=== PATIENT | female | born 1950 | race Caucasian/White ===

== ENCOUNTER → 2016-07-15 | Outpatient (CLI) | payer MEDICARE ==
[2016-07-15 12:19] LABS: Basophils # (A) 0.1 k/uL (0-0.2); Basophils % (A) 1 %; CH 32.1; CHCM 36.3; Eosinophils # (A) 0.4 k/uL (0-0.7); Eosinophils % (A) 4 %; HDW 3.35; HGB 15.4 gm/dL (11.4-16.0); Luc # (Auto) 0.22; Luc % (Auto) 2; Lymphocytes # (A) 2.7 k/uL (1.0-4.8); Lymphocytes % (A) 26 %; MCH 31.1 pg (25.0-35.0); MCHC 34.9 g/dL (31.0-37.0); MCV 89.1 fL (80.0-100.0); Mean Platelet Volume 8.4; Monocytes # (A) 0.7 k/uL (0-1.0); Monocytes % (A) 6 %; Neutrophils # (A) 6.3 k/uL (1.3-7.7); Neutrophils % (A) 61 %; RBC 4.94 m/uL (3.80-5.40); RDW 13.6 % (11.5-15.5); WBC 10.3 k/uL (3.8-10.6); WBC (Perox) 10.47
== END | disposition home or self-care (01) ==
LOC: LABPAT 11:37
PROVIDERS: ATTEND Obstetrics & Gynecology
DX: Z01.810 Encounter for preprocedural cardiovascular examination (principal); N84.0 Polyp of corpus uteri; I10 Essential (primary) hypertension
CPT/HCPCS: 85025; 93005

== ENCOUNTER 2016-07-24 08:56 | Day surgery (SDC) | payer MEDICARE ==
[2016-07-20 08:48] VITALS: BMI 42.1
--- NOTE | 2016-07-20 12:09 | HP ---
DATE OF ADMISSION: 07/24/2016 This is a 66-year-old white female, 5, para 4-0-1-4 who presented initially with an episode of postmenopausal bleeding. She had 8 days of bright red vaginal bleeding, which she discussed with Dr. Ji and was sent for evaluation. In addition, endometrial biopsy was performed, revealing fragments of benign polyps and disordered proliferative endometrium. Ultrasound showed increased endometrial thickness of 9 mm. Review of systems is otherwise negative. PAST MEDICAL HISTORY: Significant for fibrocystic breast changes, goiter, unspecified hepatitis, hypertension and anemia. PAST SURGICAL HISTORY: Significant for D&C for miscarriage as well as tubal ligation. CURRENT MEDICATIONS: 1. Lisinopril daily. 2. Motrin [id number]-[id number]-[id number], as needed. 3. Multivitamin daily. 4. Vitamin B12, folic acid supplement daily. Allergies include PENICILLIN to which she reports itching and redness. FAMILY HISTORY: Significant for breast cancer, COPD, diabetes, heart disease, hypertension and lung cancer in her father. Reproductive history is significant for 4 vaginal deliveries, spontaneous miscarriage requiring D&C. SOCIAL HISTORY: The patient is , her 's name is Dani. She is a former tobacco smoker. She admits to social alcohol use, no recreational drug use. Review of systems is otherwise negative. On exam, this is a pleasant white female, she is 5 feet 3 inches, 237 pounds, blood pressure 140/80. BMI 42. General physical exam reveals no obvious changes. Neck is soft and supple, good range of motion, no thyromegaly, no cervical lymphadenopathy. Chest is clear to auscultation in all thibodeaux anteriorly and posteriorly. Cardiac exam reveals regular rate and rhythm with no murmur, click or rub. Breasts are symmetric to inspection, no discernible lesions or masses, no nipple discharge, no axillary adenopathy, no skin changes. Abdominal exam reveals a mildly obese abdomen, no organosplenomegaly, active bowel sounds, no CVA tenderness. External genitalia is well estrogenized. There is a grade 3 cystocele noted and a grade 3 rectocele. Cervix is multiparous in appearance. Endometrial biopsy is performed and discussed above. Adnexa are negative, smooth, mobile and nontender. Rectal exam reveals good sphincter tone, FIT negative stool. IMPRESSION: Postmenopausal bleeding, endometrial biopsy revealing fragments of benign polyps and disordered proliferative endometrium. Patient does have cystocele and rectocele but is requesting NovaSure endometrial ablation. PLAN: We will proceed with hysteroscopy, NovaSure ablation at [facility]. The pamphlets on this procedure have been given to the patient and they have been reviewed. She understands the risks of infection, bleeding, perforation to bowel, bladder, ureters, or indeed any pelvic or abdominal organs. We discussed also the risk of the anesthesia, aspiration, nerve damage or even . All questions are answered.
[~2016-07-24 08:56] MED LIST: DEXAMETHASONE SOD PHOSPHATE 10 MG/ML 1 ML VIAL IV ONE; HYDROmorphone 1 MG/ML 1 ML SYRINGE IVP PRN; LACTATED RINGERS 1,000 ML IV SCH; MIDAZOLAM 2 MG/2 ML VIAL IV PRN; ONDANSETRON 4 MG/2 ML VIAL IVP ONE; SCOPOLAMINE 1.5MG/72HR PATCH TRANSDERM ONE; ceFAZolin 2 GM in SODIUM CHLORIDE 0.9% 100 ML IVPB ONE
[2016-07-24] MEDS ORDERED: LIDOCAINE 1% 20 ML VIAL (10MG/ML) FOR IV START INTRADERMA ONE (10:02)
[2016-07-24] MEDS ORDERED: PROPOFOL 10 MG/ML 20 ML VIAL IV ONE (10:12)
[2016-07-24] MEDS ORDERED: KETOROLAC 30 MG/ML 1 ML VIAL ONE (10:12)
[2016-07-24] MEDS ORDERED: LIDOCAINE 1% INJ 10MG/ML (20 ML MDV) ONE (10:12)
[2016-07-24] MEDS ORDERED: MIDAZOLAM 2 MG/2 ML VIAL ONE (10:12)
[2016-07-24] MEDS ORDERED: SUCCINYLCHOLINE CHLORIDE 100 MG/5 ML SYR IV ONE (10:12)
[2016-07-24] MEDS ORDERED: fentaNYL (PF) 50 MCG/ML 2 ML AMP ONE (10:12)
--- NOTE | 2016-07-24 10:35 | P.OP ---
Date of Procedure: 07/24/16 Preoperative Diagnosis: Postmenopausal bleeding, endometrial polyps Postoperative Diagnosis: Pathology pending, grade 3 cystocele, uterine prolapse. Procedure(s) Performed: Hysteroscopy, D&C, polypectomy. Anesthesia: MODESTA Surgeon: Yas Blackwell Estimated Blood Loss (ml): 10 IV fluids (ml): 300 Urine output (ml): 50 Pathology: other (Uterine curettings and multiple polyps) Operative Findings: Multiple endometrial polyps Description of Procedure: Patient is brought to the operating suite where a general anesthetic is administered without difficulty. She's placed in the dorsal lithotomy position. The appropriate timeout is performed to assure proper patient and procedural identification. Antibiotics are not deemed necessary. The cervix, vagina, perineum are all prepped and draped in usual sterile fashion. Examination under anesthesia reveals a grade 3 cystocele and a uterine prolapse. Bladder is drained for approximately 50 mL of clear yellow urine. Weighted speculum was placed into the vagina. Anterior lip of the cervix is grasped with a Allis clamp. Uterus sounds to a depth of 11 cm in the anteverted position. The cervix was gently and systematically dilated using Hanks dilators. The hysteroscope was introduced and cavity is distended with sterile saline. Inspection of the cavity reveals multiple and a B12 polyps, large and fleshy. Bilateral ostia are noted. Hysteroscope was removed. The cervix is then dilated to 18 mm. A medium sharp curette is used and multiple polyps are removed. Polyp forceps are also introduced and several more polyps are procured. The hysteroscope was then placed back into the cavity and the cavity is noted to be clear of any remaining tissue or polyps. Instrumentation is removed from the vagina. All sponge needle and enhancement counts are correct at the end of the procedure. Patient is brought back to the recovery room in very good condition with stable vital signs including a blood pressure 145/81, pulse 77, 97% O2 saturation. Toradol is given to the patient prior to leaving the operative suite. She will follow-up in the office with me in 2 weeks.
[2016-07-24 10:44] VITALS: TEMP 98.2
[2016-07-24 10:46] VITALS: RESP 16
[2016-07-24 11:41] VITALS: BP 152/76; PULSE 85
== END 2016-07-24 12:02 | disposition home or self-care (01) ==
LOC: OR 08:56
PROVIDERS: ATTEND Obstetrics & Gynecology
DX: N84.0 Polyp of corpus uteri (principal); N85.01 Benign endometrial hyperplasia; N81.3 Complete uterovaginal prolapse; N95.0 Postmenopausal bleeding; I10 Essential (primary) hypertension; G47.33 Obstructive sleep apnea (adult) (pediatric); E66.9 Obesity, unspecified; Z68.41 Body mass index [BMI] 40.0-44.9, adult; Z79.1 Long term (current) use of non-steroidal anti-inflammatories (NSAID); Z79.899 Other long term (current) drug therapy; Z88.0 Allergy status to penicillin
CPT/HCPCS: 88305; 58558; J2250; J1100; J2405; J2001; J3010; J1885; J0330; J2704